=== PATIENT | male | born 1985 | race Caucasian/White ===

== ENCOUNTER 2018-06-08 00:25 | Emergency (ER) | payer OTHER ==
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
[2018-06-08 01:06] LABS: CHLORIDE,CL 101 mmol/L (98-107); SODIUM,NA 137 mmol/L (136-148)
[2018-06-08] MEDS ORDERED: Iopamidol 755 Mg/ML 100 ML Bottle IVPUSH STA (01:13)
[2018-06-08] MEDS ORDERED: Ketorolac 30 MG/ML SDV IVPUSH ONE (01:30)
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
== END 2018-06-08 01:55 | disposition home or self-care (01) ==
LOC: MW.ED 00:25
DX: S30.1XXA Contusion of abdominal wall, initial encounter (principal); V89.2XXA Person injured in unspecified motor-vehicle accident, traffic, initial encounter
CPT/HCPCS: 36415; 71260; 74177; 80053; 85025; 96374; 99285; J1885; Q9967; 99283